=== PATIENT | male | born 1990 | race American Indian/Alaskan Native ===

== ENCOUNTER 2020-12-23 19:29 | Emergency (ER) | payer SELFPAY ==
[2020-12-23 20:07] VITALS: BP 139/70
[2020-12-23] MEDS ORDERED: TETANUS,DIPH,PERTUSS(ACELL) VACCINE 0.5 ML SYRINGE IM ONE (20:16)
--- NOTE | 2020-12-23 20:16 | Event Note ---
ED Screening Note ED Screening Note: injury by pallet allyssa large lac to left lower leg able to move toes This initial assessment/diagnostic orders/clinical plan/treatment(s) is/are subject to change based on patients health status, clinical progression and re- assessment by fellow clinical providers in the ED. Further treatment and workup at subsequent clinical providers discretion. Patient/guardian urged not to elope from the ED as their condition may be serious if not clinically assessed and managed. Initial orders include: xr, tdap
--- NOTE | 2020-12-23 20:57 | XRay Report ---
LEFT LOWER LEG 3 VIEWS INDICATION / CLINICAL INFORMATION: Left lower leg injury by pallet allyssa, lacerations. COMPARISON: None available. FINDINGS: BONES / JOINT(S): There is an acute, mildly comminuted fracture involving the medial cortex of the di stal tibia near the metaphyseal diaphyseal junction. The fibula is intact. No subluxation. No signifi cant arthritis. SOFT TISSUES: No significant abnormality. ADDITIONAL FINDINGS: None. Signer Name: Catarino Anglin MD Signed: 12/23/2020 8:53 PM Workstation Name: [id number]
[2020-12-23] MEDS ORDERED: LIDOCAINE (1%) 10 MG/1 ML VIAL 20 ML MDV INFILTRATI ONE (21:31)
--- NOTE | 2020-12-23 21:48 | Emergency Department Report ---
HPI - General Chief Complaint: Extremity Injury, Lower Time Seen by Provider: 12/23/20 20:14 - HPI HPI: This is a 30-year-old -[place] male presents to the emergency department with complaint of pain and a laceration to the left lower leg, around the inside ankle, after he was hit by a pallet allyssa around 5 PM. He went to [facility] but apparently they were unable to stop the bleeding so it was wrapped up and the patient was sent to the emergency department for further evaluation. No past medical history. He has not taken anything for symptoms prior to presentation today. Currently his pain is 9 out of 10 in intensity. It worsens with m ovement and palpation. No known alleviating factors. Unknown last tetanus vaccination. ED Past Medical Hx - Past Medical History Previous Medical History?: No - Surgical History Past Surgical History?: No - Social History Smoking Status: Current Every Day Smoker - Medications Home Medications: Home Medications Medication Instructions Recorded Confirmed Last Taken Type HYDROcodone/APAP 5-325 [[place] 1 each PO Q6HR PRN #12 tablet 12/23/20 Unknown Rx 5/325] Sulfamethoxazole/Trimethoprim 1 each PO BID #14 tablet 12/23/20 Unknown Rx [Bactrim DS TAB] ED Review of Systems ROS: Stated complaint: LT LEG/POSS BUSTED BLOOD VESSEL Other details as noted in HPI Comment: All other systems reviewed and negative Constitutional: denies: chills, fever Eyes: denies: eye pain, vision change ENT: denies: ear pain, throat pain Respiratory: denies: cough, shortness of breath Cardiovascular: denies: chest pain, palpitations Gastrointestinal: denies: abdominal pain, vomiting Genitourinary: denies: dysuria, discharge Musculoskeletal: arthralgia. denies: back pain Skin: other (Laceration left ankle). denies: rash Neurological: denies: numbness, paresthesias Physical Exam - Physical Exam Vital Signs: Vital Signs 12/23/20 20:05 Temperature 99.3 F Pulse Rate 99 H Respiratory 18 Rate Blood Pressure 139/70 O2 Sat by Pulse 98 Oximetry Physical Exam: GENERAL: The patient is well-developed well-nourished. HENT: Normocephalic. Atraumatic. Patient has moist mucous membranes. EYES: Extraocular motions are intact. NECK: Supple. Trachea is midline. CHEST/LUNGS: Clear to auscultation. There is no respiratory distress noted. HEART/CARDIOVASCULAR: Regular. There is no tachycardia. There is no murmur. ABDOMEN: Abdomen is soft, nontender. Patient has normal bowel sounds. There is no abdominal distention. SKIN: Skin is warm and dry. There is a large L-shaped flap laceration to the distal medial tib-fib with skin avulsion/volume loss. The wound is gapped about 3 to 4 cm at the apex. There are 2 other lacerations just laterally that are each about 2 cm in length, linear, superficial in the inferior superior direction. NEURO: The patient is awake, alert, and oriented. The patient is cooperative. The patient has no focal neurologic deficits. Normal speech. MUSCULOSKELETAL: There is some tenderness to palpation to the left lower leg with the patient has multiple lacerations. There is no limitation range of motion. Dorsalis pedis pulse +2/4 and capillary refill less than 2 seconds to the affected left lower extremity. ED Course Vital Signs 12/23/20 20:05 Temperature 99.3 F Pulse Rate 99 H Respiratory 18 Rate Blood Pressure 139/70 O2 Sat by Pulse 98 Oximetry - Consultations Consultation #1: 12/23/20 22:51 I spoke with the orthopedist accreditation coordinator, Dr Boone, about the patient's presentation, his laceration, x-ray findings of mildly comminuted distal tibia fracture thus making this an open fracture. Dr. Boone recommends that the wound is irrigated, the wound is approximated as much as possible, the patient is splinted and nonweightbearing, and he can follow-up outpatient in the next few days in his office. - Laceration /Wound Repair Left Ankle Wound Location: lower extremity (Left medial distal tib-fib) Wound Length (cm): 6 Wound's Depth, Shape: flap (With skin avulsion/volume loss) Wound Explored: no foreign body removed Irrigated w/ Saline (ccs): 200 Anesthesia: 1% Lidocaine Volume Anesthetic (ccs): 10 Wound Repaired With: sutures Suture Size/Type: 4:0, 3:0, nylon Number of Sutures: 8 (3 horizontal mattress, 2 vertical mattress, 2 simple interrupted) Sterile Dressing Applied?: Yes Progress: Due to the irregular shape and volume loss, I was unable to completely approximate the wound. The gap has been decreased by half at the greatest diameter and the proximal and lateral sides have been approximated in this L- shaped flap laceration with volume/skin loss. Foot Wound Location: lower extremity (Left medial distal lower extremity, tib-fib) Wound Length (cm): 2 Wound's Depth, Shape: superficial, linear Wound Explored: no foreign body removed Irrigated w/ Saline (ccs): 100 Anesthesia: 1% Lidocaine Volume Anesthetic (ccs): 2 Wound Repaired With: sutures Suture Size/Type: 4:0, nylon Number of Sutures: 4 Sterile Dressing Applied?: Yes Left Calf Wound Location: lower extremity (Left medial distal lower extremity, tib-fib) Wound Length (cm): 2 Wound's Depth, Shape: linear Wound Explored: no foreign body removed Irrigated w/ Saline (ccs): 100 Anesthesia: 1% Lidocaine Volume Anesthetic (ccs): 2 Wound Repaired With: sutures Suture Size/Type: 4:0, nylon Number of Sutures: 3 Layer Closure?: No Sterile Dressing Applied?: Yes ED Medical Decision Making - Radiology Data Radiology results: report reviewed LEFT LOWER LEG 3 VIEWS INDICATION / CLINICAL INFORMATION: Left lower leg injury by pallet allyssa, lacerations. COMPARISON: None available. FINDINGS: BONES / JOINT(S): There is an acute, mildly comminuted fracture involving the medial cortex of the distal tibia near the metaphyseal diaphyseal junction. The fibula is intact. No subluxation. No significant arthritis. SOFT TISSUES: No significant abnormality. ADDITIONAL FINDINGS: None. - Medical Decision Making This patient presents to the ER with a moderate sized left lower extremity laceration with some skin volume loss. There are also 2 other small linear lacerations just lateral to this. This occurred after the patient took a pallet allyssa to the leg. X-ray shows mildly comminuted distal tibia fracture. Orthopedist was contacted and has given his recommendations which includes discharge with outpatient follow-up. The 2 small lacerations were sutured closed and well approximated. The larger laceration received multiple sutures including horizontal and vertical mattress sutures, and I closed the gap by about half, but secondary to the volume loss I am unable to completely approximate the wound. The area was washed with about 200 cc of sterile saline. The patient is receiving an IV dose of Ancef. He will be placed in a splint and will be nonweightbearing on crutches. The patient will receive a prescription for antibiotics and pain medication. He will be given outpatient referrals for multiple local orthopedic groups. We discussed signs/symptoms of infection for which he would need immediate return to the closest ED. Critical care attestation.: If time is entered above; I have spent that time in minutes in the direct care of this critically ill patient, excluding procedure time. ED Disposition Clinical Impression: Left tibial fracture, Laceration of left lower leg Disposition: - TO HOME OR SELFCARE Is pt being admited?: No Condition: Stable Instructions: Tibial Fracture, Adult, Laceration Care, Adult, Cast or Splint Care, Adult, Wound Care, Adult Additional Instructions: Please follow-up with an orthopedist in the next few days. I have given you referral for 2 different local orthopedic groups, Dr. Boone and [facility]. Remain nonweightbearing to the left leg until follow-up with the orthopedist. Please keep the splint on unless you are doing wound care and then return the splint immediately. Clean the area with soap and water and then make sure it remains dry. Please make sure you are seen immediately with any signs/symptoms of infection such as increased pain, increased swelling, surrounding redness, development of fever, or discharge of pus. Take the medications as prescribed. You have been prescribed a medication that is sedating and therefore should not be taken prior to driving, working, and responsible for children and in no way should be mixed with alcohol of any quantity. Return to the emergency department with any worsening of your symptoms, new or concerning symptoms not addressed during this current emergency department visit , or with any acute distress. Prescriptions: Sulfamethoxazole/Trimethoprim [Bactrim DS TAB] 1 each PO BID #14 tablet HYDROcodone/APAP 5-325 [[place] 5/325] 1 each PO Q6HR PRN #12 tablet PRN Reason: Pain Referrals: MADAN BOONE MD [Staff Physician] - 2-3 Days [facility] [Provider Group] - 2-3 Days Time of Disposition: 23:08
== END 2020-12-23 23:40 | disposition home or self-care (01) ==
LOC: ED 19:29
DX: S82.292A Other fracture of shaft of left tibia, initial encounter for closed fracture (principal); S91.012A Laceration without foreign body, left ankle, initial encounter; S91.312A Laceration without foreign body, left foot, initial encounter; F17.200 Nicotine dependence, unspecified, uncomplicated; W22.8XXA Striking against or struck by other objects, initial encounter; Y93.89 Activity, other specified; Y92.89 Other specified places as the place of occurrence of the external cause; Y99.8 Other external cause status
CPT/HCPCS: 12004; 73590; 90471; 90715; 96365; 99283; J0690

== ENCOUNTER 2021-09-11 07:22 | Outpatient (CLI) | payer OTHER ==
--- NOTE | 2021-09-12 15:26 | Nuclear Medicine Report ---
NUCLEAR MEDICINE TUMOR LOCAL WHITE BLOOD CELL SCAN HISTORY: S87.82XD CRUSHING INJURY TO LEFT LOWER LEG. Chronic left lower extremity pain after injury. TECHNIQUE: Patient was given 21.4 mCi of technetium 99m Ceretec labeled white blood cells. 1, 4 and 24-hour imaging was performed in both lower extremities. 24-hour whole body images were also obtained . COMPARISON: Left tibia and fibula x-ray 11/23/2020 FINDINGS: There is physiologic distribution of the liver radiotracer in the liver, spleen and bone m arrow. There is no evidence for focal accumulation of the radiotracer particularly in the left lower extremity to suggest infection. IMPRESSION: Unremarkable exam. No evidence for infection. Signer Name: Mitesh Balbuena Jr, MD Signed: 09/12/2021 3:21 PM Workstation Name: [id number]
== END 2021-09-11 07:23 | disposition home or self-care (01) ==
LOC: NM 07:22
PROVIDERS: ATTEND Orthopaedic Surgery
DX: S87.82XD Crushing injury of left lower leg, subsequent encounter (principal); X58.XXXD Exposure to other specified factors, subsequent encounter
CPT/HCPCS: 78804; A9521